=== PATIENT | female | born 1980 | race Caucasian/White ===

== ENCOUNTER → 2019-08-10 17:23 | Outpatient (BNVA) | payer MEDICAID, SELFPAY | PROVIDERS: Visit Provider Nurse Practitioner Family | DX: R10.9 Unspecified abdominal pain (principal); R10.31 Right lower quadrant pain; M54.5 Low back pain; F32.9 Major depressive disorder, single episode, unspecified; F41.9 Anxiety disorder, unspecified | CPT/HCPCS: 80053; 81001; 81003; 81025; 85025 ==

== ENCOUNTER → 2019-11-10 15:18 | Outpatient (BNVA) | payer SELFPAY | PROVIDERS: Visit Provider Nurse Practitioner Family | DX: M25.551 Pain in right hip (principal) | CPT/HCPCS: 73502; 80053; 84443; 85025 ==

== ENCOUNTER → 2019-12-13 14:13 | Outpatient (BNVA) | payer SELFPAY | PROVIDERS: Visit Provider Nurse Practitioner Family | DX: N39.0 Urinary tract infection, site not specified (principal); R30.0 Dysuria | CPT/HCPCS: 80053; 81003 ==

== ENCOUNTER 2020-02-19 16:08 | Emergency (ER) | payer SELFPAY ==
--- NOTE | 2020-02-19 16:20 | XRR_ITS ---
PROCEDURE INFORMATION: Exam: XR Left Ankle Exam date and time: 02/19/2020 4:21 PM Age: 39 years old Clinical indication: Pain; Ankle; Left; Additional info: Injury/pain TECHNIQUE: Imaging protocol: XR Left ankle. Views: 3 or more views. COMPARISON: No relevant prior studies available. FINDINGS: Bones/joints: The bone density is appropriate. No periosteal reaction. No osteomyelitis. No acute fracture or dislocation. No bony destructive changes. Soft tissues: There is soft tissue edema. No foreign body. No gas in the soft tissues. XR/XR ankle LT min 3V* [id number] IMPRESSION: No acute bony abnormality.
[2020-02-19 16:22] VITALS: BP 131/84; PULSE 110; RESP 18; TEMP 37.1; O2SAT 98; BMI 18.4
[2020-02-19 16:37] VITALS: RESP 18
--- NOTE | 2020-02-19 16:41 | ED_ITS ---
HPI - Extremity Injury (Lower) General: Chief Complaint: Extremity Injury, Lower Stated Complaint: L ANKLE INJURY Time Seen by Provider: 02/19/20 16:24 Source: patient Mode of arrival: wheelchair Limitations: no limitations History of Present Illness: HPI Narrative: Patient is a 39-year-old female who presents to ED today with a complaint of left ankle injury. Patient tells me she was at a park and accidentally stepped in a hole and inverted her foot. No other injuries or complaints at this time. Patient is not able to bear weight on the extremity. MD complaint: foot injury Onset (ago): hour(s) Injury: Left: ankle Type of Injury: inversion Place: street/outdoors Severity: moderate Relieving factors: immobilization Exacerbating factors: weight bearing, movement and palpation Context: other (twisted) Associated symptoms: Reports inability to bear weight Other symptoms: none Review of Systems Musc: Reports: joint pain (L ankle) and joint swelling (L ankle) PFSH ED PFSH: Social History Smoking and tobacco status: never smoked Second hand smoke exposure: No Alcohol intake: never Lives independently: Yes Household members: children Marital status: Current occupational status: employed Current occupation: [employer] History of recent travel: No Current gender identity: Female Physical Exam Const: COMMON NORMALS: no acute distress, patient oriented x3, no limitations and alert Extremity: GENERAL: Yes normal exam except as noted OTHER: TTP and significant swelling to L lateral malleolus with developing ecchymosis; NV intact Neuro: COMMON NORMALS: patient oriented x3 and no sensory deficits noted SENSORIUM/ORIENTATION: Yes alert GAIT: Yes Unable to assess gait Skin: COMMON NORMALS: no rashes or lesions noted GENERAL SKIN EXAM: no rashes or lesions noted Course Vital Signs: Vital signs: Vital Signs Temperature 98.7 F 02/19/20 16:22 Pulse Rate 110 H 02/19/20 16:22 Respiratory Rate 18 02/19/20 16:37 Blood Pressure 131/84 02/19/20 16:22 Pulse Oximetry 98 02/19/20 16:22 MDM - Extremity Injury (Lower) Imaging Data^: XR L ankle: My impression: soft tissue swelling about lateral malleolus; no fracture, dislocation, joint widening appreciated Discharge Plan Discharge Patient Disposition: Home Clinical Impression: Inversion sprain of left ankle Qualifiers: Encounter type: initial encounter Qualified Code(s): S93.402A - Sprain of unspecified ligament of left ankle, initial encounter Condition: Stable Prescriptions: No Action clonazepam 1 mg tablet 1 mg PO BID PRN (Reason: anxiety) Qty: 20 RF: 0 Discharge Orders: Discharge Order (Routine); Ordered 02/19/20 Ordered By: Nadine Ordoñez Patient Instructions: Ankle Sprain (ED), Ankle Stirrup Splint (ED), RICE Therapy (ED), Sprains - Ankle Activity Restrictions/Additional Instructions: As discussed ice and elevate the extremity as much as possible. Weightbearing as tolerated. Please follow-up with primary care in 1 week for continued or not improving pain. Coding Level of Care Code ED Music Engineer for Shama Fwnelly Exam Expanded Problem Focused
== END 2020-02-19 17:15 | disposition home or self-care (01) ==
PROVIDERS: Emergency Provider Physician Assistant
DX: S93.402A Sprain of unspecified ligament of left ankle, initial encounter (principal); X58.XXXA Exposure to other specified factors, initial encounter
CPT/HCPCS: 12345; 29515; 73610; 99281; 99283; E0114

== ENCOUNTER 2020-09-16 10:33 | Emergency (ER) | payer SELFPAY ==
[2020-09-16 10:56] VITALS: BP 120/66; PULSE 79; RESP 18; TEMP 36.6; O2SAT 99; BMI 18.6
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
[2020-09-16 12:11] LABS: Basophils # 0.1 10^3/uL (0.0-0.1); Basophils % 0.5 %; Eosinophils # 0.2 10^3/uL (0.0-0.8); Eosinophils % 1.9 %; Hematocrit 40.5 % (37.0-47.0); Hemoglobin 12.9 g/dL (11.5-15.3); Lymphocytes # 2.3 10^3/uL (0.8-4.8); Lymphocytes % 22.3 %; Mean Corpuscular HGB Conc 31.9 g/dL (30.0-36.0); Mean Corpuscular Hemoglobin 29.3 pg (28.0-34.0); Mean Corpuscular Volume 91.8 fL (81-99); Mean Platelet Volume 11.5 fL (7.4-10.4); Monocytes # 0.4 10^3/uL (0.2-0.9); Monocytes % 3.5 %; Neutrophils # 7.44 10^3/uL (1.8-7.7); Neutrophils % 71.6 %; Nucleated Red Blood Cells % 0 %; Platelet Count 230 10^3/cmm (130-400); Red Blood Count 4.41 10^6/uL (4.1-5.3); Red Cell Distribution Width 13.2 % (12.1-15.1); White Blood Count 10.4 10^3/uL (4.0-10.0)
[2020-09-16 12:15] LABS: Glucose Urine UA Norm (Normal); Protein Urine 1+ (Negative); Urine Appearance SL Hazy (CLEAR); Urine Color Yellow (Yellow); pH Urine 7 (5-7)
[2020-09-16 12:16] LABS: Add Urine Microscopic? YES; Bilirubin Urine 1+ (Negative); Blood Urine 2+ (Negative); Ketones Urine Negative (Negative); Leukocyte Esterase Urine Trace (Negative); Nitrate Urine Positive (Negative); Urobilinogen Urine 4 mg/dL (Negative)
[2020-09-16 12:18] LABS: Squamous Epithelial Cell Urine RARE /hpf (0-5); WBC Urine 25-40 /hpf (0-5)
[2020-09-16 12:18] LABS: Blood Urea Nitrogen 8 mg/dL (6-20); Calcium 8.8 mg/dL (8.5-10.5); Carbon Dioxide 26 mmol/L (22-29); Chloride 104 mmol/L (98-107); Glomerular Filtration Rate 138.1 mL/min (90-130); Glucose 86 mg/dL (65-115); Osmolality Calculated 284 mOsm/kg (285-295); Sodium 138 mmol/L (136-145)
[2020-09-16 12:19] LABS: Add Urine Culture? Yes; Bacteria Urine 1+ /hpf; Mucus Urine 1+ /hpf
[2020-09-16 12:26] LABS: Anion Gap 12.3 (5-19); Potassium 4.3 mmol/L (3.5-5.1)
[2020-09-16] MEDS: cefTRIAXone 1,000 MG in lidocaine 1% 2.1 ML 1 MG IM (12:33)
[2020-09-16 13:06] VITALS: BP 119/64; PULSE 62; RESP 18; O2SAT 99
--- NOTE | 2020-09-19 10:46 | PC.NURSE ---
Attempted to call pt but unable to reach her on any number listed.
== END 2020-09-16 13:08 | disposition home or self-care (01) ==
PROVIDERS: Nurse Practitioner Family; Emergency Provider Family Medicine
DX: N39.0 Urinary tract infection, site not specified (principal); F17.290 Nicotine dependence, other tobacco product, uncomplicated
CPT/HCPCS: 80048; 81001; 85025; 87086; 96372; 99283; J0696

== ENCOUNTER 2020-09-17 19:09 | Emergency (ER) | payer MEDICAID, SELFPAY ==
[2020-09-17 19:24] VITALS: BP 126/81; PULSE 80; RESP 15; TEMP 36.7; O2SAT 100; BMI 18.6
[2020-09-17 22:15] VITALS: BP 135/101; PULSE 133; RESP 20; O2SAT 100
--- NOTE | 2020-09-17 22:16 | W.ED.NAVMDI ---
HPI - Nausea/Vomiting/Diarrhea General: Chief complaint: Nausea/Vomiting/Diarrhea Stated complaint: n/v, here yesterday Time Seen by Provider: 09/17/20 22:14 History of Present Illness: HPI Narrative: Patient is a nausea vomiting and diarrhea. Patient was seen in the ED yesterday today and diagnosed with a UTI. She was unable to get her prescription filled today and has not been taking her prescribed antibiotic to treat UTI. Today she started developing some nausea and vomiting and diarrhea around 3 PM. Patient also complaining of having some right flank pain. Right flank pain rated an 8 out of 10. Associated nausea: Yes Associated symtoms: Reports dysuria and nausea; Denies change in vision, chest pain, fatigue, headache(s) or palpitations Review of Systems Const: Denies: fever(s), chills or fatigue Eyes: Denies: change in vision or eye discomfort ENMT: Denies: throat pain, odynophagia, nasal discharge or nasal congestion Card: Denies: chest pain, palpitations, edema, swelling of feet/ankles, dyspnea on exertion or orthopnea Resp: Denies: dyspnea, productive cough or non-productive cough GI: Reports: nausea, vomiting and diarrhea; Denies: abdominal pain, constipation or hematochezia : Reports: flank pain (Right flank) and dysuria; Denies: hematuria Musc: Denies: neck pain, back pain or extremity swelling Skin/Breast: Denies: rash or new lesions Neuro: Denies: headache(s), numbness in extremities or weakness in extremities PFS ED PFSH: Surgical History History of knee surgery History of tubal ligation Social History Smoking and tobacco status: current every day smoker e-cigarettes E-Cigarette Details: vaporizer device and with nicotine E-cig/vape details: 6 mg/day Quit status (tobacco): has tried quititng Number of times tried to quit tobacco: 1 Second hand smoke exposure: No Alcohol intake: never Lives independently: Yes Household members: children Marital status: Current occupational status: employed Current occupation: [employer] History of recent travel: No Current gender identity: Female Female Reproductive History: Date of last menstrual period: 09/11/20 Physical Exam Const: COMMON NORMALS: no acute distress, patient oriented x3, healthy appearing and alert GENERAL APPEARANCE: cooperative and comfortable HENMT: COMMON NORMALS: normocephalic HEAD & SCALP: normocephalic MOUTH: Normal oral and palatal mucosa present THROAT: posterior oropharynx normal and uvula midline Eye: COMMON NORMALS: Equal, round and reactive pupils present PUPIL: Yes Equal, round and reactive pupils present Neck/C-Spine: COMMON NORMALS: supple GENERAL: Yes normal visual inspection Resp: COMMON NORMALS: normal respiratory effort, No retractions, No use of accessory muscles and clear to auscultation bilaterally AUSCULTATION: clear to auscultation bilaterally Cardio: COMMON NORMALS: regular rate, regular rhythm, S1 normal heart sound present, S2 normal heart sound present, No gallops present (Cardio), No clicks present (Cardio), No murmurs present (Cardio) and Peripheral pulses 2+ throughout RATE: regular rate RHYTHM: regular rhythm HEART SOUNDS: S1 normal heart sound present and S2 normal heart sound present PERIPHERAL PULSES: Peripheral pulses 2+ throughout GI: COMMON NORMALS: Normal to inspection, nondistended, normoactive bowel sounds present, Soft to palpation, non-tender and no masses PALPATION: Yes Soft to palpation : BLADDER/KIDNEY EXAM: Yes Bladder palpation abnormal Bladder abnormal details: tender Back/Pelvis: GENERAL BACK: Yes CVA tenderness CVA tenderness: right Extremity: COMMON NORMALS: normal to inspection Neuro: COMMON NORMALS: patient oriented x3 and moves all extremities SENSORIUM/ORIENTATION: Yes alert Skin: GENERAL SKIN EXAM: dry skin Course Vital Signs: Vital signs: Vital Signs Temperature 98.0 F 09/18/20 01:22 Pulse Rate 78 09/18/20 01:22 Respiratory Rate 15 09/18/20 01:22 Blood Pressure 107/53 09/18/20 01:22 Pulse Oximetry 99 09/18/20 01:22 MDM - Nausea/Vomiting/Diarrhea MDM Narrative: Medical decision making narrative: Patient is a 40-year-old female comes to the ED with nausea/vomiting, right flank pain. Patient was seen here in the ED September 16 and was diagnosed with a UTI and discharged home with a prescription for an antibiotic. Patient says she has not filled the antibiotic prescription yet. She states today she started developing some worsening symptoms. Exam shows some right CVA tenderness and some tenderness upon palpation of bladder. White blood cell count 12.9 and the rest of CBC and CMP were unremarkable. UA suggestive of UTI. Patient was given IV fluids, Zofran, Toradol and Rocephin. Patient's symptoms improved and she no longer felt nauseous. Patient diagnosed with UTI and discharged home with a prescription of Zofran. She was told to take her previously prescribed antibiotic to treat her UTI and to drink plenty of fluids and stay hydrated. Return to ED precautions given. Follow-up with PCP in 7 to 10 days for reevaluation. Patient understood and agreed with plan. Lab Data: Attestation: I reviewed the patient's lab results. Labs: Lab Results 09/17/20 09/17/20 09/17/20 Range/Units 22:35 22:35 22:35 WBC 12.9 H (4.0-10.0) 10^3/ uL RBC 4.85 (4.1-5.3) 10^6/u L Hgb 14.1 (11.5-15.3) g/dL Hct 45.1 (37.0-47.0) % MCV 93.0 (81-99) fL MCH 29.1 (28.0-34.0) pg MCHC 31.3 (30.0-36.0) g/dL RDW 13.1 (12.1-15.1) % Plt Count 255 (130-400) 10^3/c mm MPV 10.5 H (7.4-10.4) fL Neut % (Auto) 85.2 % Lymph % (Auto) 9.3 % Christian % (Auto) 2.8 % Eos % (Auto) 2.1 % Baso % (Auto) 0.4 % Neut # (Auto) 11.01 H (1.8-7.7) 10^3/u L Lymph # (Auto) 1.2 (0.8-4.8) 10^3/u L Christian # (Auto) 0.4 (0.2-0.9) 10^3/u L Eos # (Auto) 0.3 (0.0-0.8) 10^3/u L Baso # (Auto) 0.1 (0.0-0.1) 10^3/u L Nucleated RBC % (a uto) 0 % Nucleated RBCs # 0.0 /100WBC Sodium 142 (136-145) mmol/L Potassium 3.8 (3.5-5.1) mmol/L Chloride 108 H (98-107) mmol/L Carbon Dioxide 24 (22-29) mmol/L Anion Gap 13.8 (5-19) BUN 12 (6-20) mg/dL Creatinine 0.5 (0.5-0.9) mg/dL GFR Calculation 138.1 H (90-130) mL/min Glucose 108 (65-115) mg/dL Calculated Osmolal ity 294 (285-295) mOsm/k g Calcium 8.5 (8.5-10.5) mg/dL Total Bilirubin 1.3 H (0.15-1.2) mg/dL AST 17 (0-32) U/L ALT 21 (0-33) U/L Alkaline Phosphata se 50 (35-105) IU/L Total Protein 7.2 (6.6-8.7) g/dL Albumin 4.5 (3.5-5.2) g/dL Globulin 2.7 (1.3-4.6) g/dL HCG, Qual Negative (Negative) Urine Color (Yellow) Urine Appearance (CLEAR) Urine pH (5-7) Ur Specific Gravit y (1.005-1.030) Urine Protein (Negative) Urine Glucose (UA) (Normal) Urine Ketones (Negative) Urine Blood (Negative) Urine Nitrate (Negative) Urine Bilirubin (Negative) Urine Urobilinogen (Negative) mg/dL Ur Leukocyte Nancie ase (Negative) Urine RBC (0-2) /hpf Urine WBC (0-5) /hpf Ur Squamous Epith Cells (0-5) /hpf Amorphous Sediment Urine Bacteria (NONE) /hpf Urine Mucus /hpf 09/17/20 Range/Units 22:35 WBC (4.0-10.0) 10^3/ uL RBC (4.1-5.3) 10^6/u L Hgb (11.5-15.3) g/dL Hct (37.0-47.0) % MCV (81-99) fL MCH (28.0-34.0) pg MCHC (30.0-36.0) g/dL RDW (12.1-15.1) % Plt Count (130-400) 10^3/c mm MPV (7.4-10.4) fL Neut % (Auto) % Lymph % (Auto) % Christian % (Auto) % Eos % (Auto) % Baso % (Auto) % Neut # (Auto) (1.8-7.7) 10^3/u L Lymph # (Auto) (0.8-4.8) 10^3/u L Christian # (Auto) (0.2-0.9) 10^3/u L Eos # (Auto) (0.0-0.8) 10^3/u L Baso # (Auto) (0.0-0.1) 10^3/u L Nucleated RBC % (a uto) % Nucleated RBCs # /100WBC Sodium (136-145) mmol/L Potassium (3.5-5.1) mmol/L Chloride (98-107) mmol/L Carbon Dioxide (22-29) mmol/L Anion Gap (5-19) BUN (6-20) mg/dL Creatinine (0.5-0.9) mg/dL GFR Calculation (90-130) mL/min Glucose (65-115) mg/dL Calculated Osmolal ity (285-295) mOsm/k g Calcium (8.5-10.5) mg/dL Total Bilirubin (0.15-1.2) mg/dL AST (0-32) U/L ALT (0-33) U/L Alkaline Phosphata se (35-105) IU/L Total Protein (6.6-8.7) g/dL Albumin (3.5-5.2) g/dL Globulin (1.3-4.6) g/dL HCG, Qual (Negative) Urine Color Yellow (Yellow) Urine Appearance Clear (CLEAR) Urine pH 5 (5-7) Ur Specific Gravit y 1.015 (1.005-1.030) Urine Protein Trace (Negative) Urine Glucose (UA) Norm (Normal) Urine Ketones Negative (Negative) Urine Blood 2+ H (Negative) Urine Nitrate Negative (Negative) Urine Bilirubin 1+ H (Negative) Urine Urobilinogen 1 H (Negative) mg/dL Ur Leukocyte Nancie ase Negative (Negative) Urine RBC 15-25 H (0-2) /hpf Urine WBC 0-4 H (0-5) /hpf Ur Squamous Epith Cells 25-40 H (0-5) /hpf Amorphous Sediment Not Reportable Urine Bacteria Trace (NONE) /hpf Urine Mucus 3+ /hpf Discharge Plan Discharge Patient Disposition: Home Clinical Impression: UTI (urinary tract infection) Qualifiers: Urinary tract infection type: acute cystitis Hematuria presence: with hematuria Qualified Code(s): N30.01 - Acute cystitis with hematuria Nausea & vomiting Qualifiers: Vomiting type: unspecified Vomiting Intractability: non-intractable Qualified Code(s): R11.2 - Nausea with vomiting, unspecified Condition: Stable Prescriptions: New ondansetron 4 mg tablet,disintegrating 4 mg PO Q8H PRN (Reason: Nausea) Qty: 15 RF: 0 No Action sulfamethoxazole-trimethoprim [Bactrim DS] 800-160 mg tablet 1 tab PO BID Qty: 20 RF: 0 mupirocin 2 % ointment 1 applic topical TID Qty: 22 RF: 0 melatonin 3 mg Tablet 3 mg PO BEDTIME RF: 0 Cipro 500 mg tablet 500 mg PO BID Qty: 14 RF: 0 Discharge Orders: Discharge ED (Routine); Ordered 09/18/20 Ordered By: Jamal Arango Discharge Diet: Regular Discharge Activity: Resume usual activity Patient Instructions: Urinary Tract Infection in Women (ED) Activity Restrictions/Additional Instructions: Follow-up with medical provider as directed in 7 to 10 days for reevaluation. Get your antibiotic prescription filled tomorrow morning and also take the prescribed Zofran as needed for nausea. Drink plenty fluids and stay hydrated. Take [id number] Tylenol or Motrin for pain. Return to the ER or your medical provider if condition worsens. Please read and understand discharge instructions. If any questions, please ask. Coding Level of Care Code ED [place] [employer] for Shama Fwd Exam Comprehensive
[2020-09-17] MEDS: ondansetron 2 mg/ML SDV 2 mL 4 MG IVP (22:41)
[2020-09-17 22:42] LABS: Basophils # 0.1 10^3/uL (0.0-0.1); Basophils % 0.4 %; Eosinophils # 0.3 10^3/uL (0.0-0.8); Eosinophils % 2.1 %; Hematocrit 45.1 % (37.0-47.0); Hemoglobin 14.1 g/dL (11.5-15.3); Lymphocytes # 1.2 10^3/uL (0.8-4.8); Lymphocytes % 9.3 %; Mean Corpuscular HGB Conc 31.3 g/dL (30.0-36.0); Mean Corpuscular Hemoglobin 29.1 pg (28.0-34.0); Mean Platelet Volume 10.5 fL (7.4-10.4); Monocytes # 0.4 10^3/uL (0.2-0.9); Monocytes % 2.8 %; Neutrophils # 11.01 10^3/uL (1.8-7.7); Neutrophils % 85.2 %; Nucleated Red Blood Cells % 0 %; Platelet Count 255 10^3/cmm (130-400); Red Blood Count 4.85 10^6/uL (4.1-5.3); Red Cell Distribution Width 13.1 % (12.1-15.1); White Blood Count 12.9 10^3/uL (4.0-10.0)
[2020-09-17] MEDS: sodium chloride 0.9% 1,000 ML 999 ML IV (22:42)
[2020-09-17 22:46] VITALS: BP 109/63; PULSE 69; RESP 16; O2SAT 100
[2020-09-17 23:01] LABS: Alanine Aminotransferase 21 U/L (0-33); Albumin Level 4.5 g/dL (3.5-5.2); Alkaline Phosphatase 50 IU/L (35-105); Anion Gap 13.8 (5-19); Aspartate Amino Transferase 17 U/L (0-32); Blood Urea Nitrogen 12 mg/dL (6-20); Calcium 8.5 mg/dL (8.5-10.5); Carbon Dioxide 24 mmol/L (22-29); Chloride 108 mmol/L (98-107); Globulin 2.7 g/dL (1.3-4.6); Glomerular Filtration Rate 138.1 mL/min (90-130); Glucose 108 mg/dL (65-115); HCG, Serum Qual Negative (Negative); Osmolality Calculated 294 mOsm/kg (285-295); Potassium 3.8 mmol/L (3.5-5.1); Sodium 142 mmol/L (136-145); Total Bilirubin 1.3 mg/dL (0.15-1.2); Total Protein 7.2 g/dL (6.6-8.7)
[2020-09-17 23:27] LABS: Bilirubin Urine 1+ (Negative); Blood Urine 2+ (Negative); Glucose Urine UA Norm (Normal); Ketones Urine Negative (Negative); Leukocyte Esterase Urine Negative (Negative); Nitrate Urine Negative (Negative); Protein Urine Trace (Negative); Specific Gravity, Urine 1.015 (1.005-1.030); Urine Appearance Clear (CLEAR); Urine Color Yellow (Yellow); Urobilinogen Urine 1 mg/dL (Negative); pH Urine 5 (5-7)
[2020-09-17 23:28] LABS: Add Urine Culture? No; Bacteria Urine TRACE /hpf; Mucus Urine 3+ /hpf; RBC Urine 15-25 /hpf (0-2); Squamous Epithelial Cell Urine 25-40 /hpf (0-5); WBC Urine 0-4 /hpf (0-5)
[2020-09-17] MEDS: cefTRIAXone 1,000 MG in sodium chloride 0.9% (plus) 50 ML 100 MG IV (23:28)
[2020-09-17 23:30] VITALS: BP 116/69; PULSE 77; RESP 16; O2SAT 100
[2020-09-17] MEDS: ketorolac 30 mg/mL INJ IVP (23:53)
[2020-09-18 01:22] VITALS: BP 107/53; PULSE 78; RESP 15; TEMP 36.7; O2SAT 99
== END 2020-09-18 01:22 | disposition home or self-care (01) ==
PROVIDERS: Emergency Provider Physician Assistant
DX: R11.2 Nausea with vomiting, unspecified (principal); N30.01 Acute cystitis with hematuria; F17.290 Nicotine dependence, other tobacco product, uncomplicated
CPT/HCPCS: 80053; 81001; 84703; 85025; 96365; 96375; 99283; J0696; J1885; J2405; J7030

== ENCOUNTER → 2020-09-20 11:51 | Outpatient (BNVA) | payer MEDICAID, SELFPAY | PROVIDERS: Visit Provider Nurse Practitioner Family | DX: Z12.4 Encounter for screening for malignant neoplasm of cervix (principal); Z11.3 Encounter for screening for infections with a predominantly sexual mode of transmission; N64.4 Mastodynia | CPT/HCPCS: 87070; 87205; 87491; 87591; 87661; 88175 ==

== ENCOUNTER 2020-10-30 13:27 | Outpatient (CLI) | payer SELFPAY ==
--- NOTE | 2020-10-30 13:30 | MM_ITS ---
WS: [id number] DIAGNOSTIC BILATERAL DIGITAL MAMMOGRAM WITH CAD HISTORY: N64.4 - Mastodynia COMPARISON: None available. TECHNIQUE: Bilateral craniocaudad, mediolateral oblique, and mediolateral views are submitted. Comput er aided detection utilized. Breast composition: The breasts are extremely dense, which lowers the sensitivity of mammography. Sym metric fibroglandular soft tissue densities within each breast. No distortion or calcification. MM/[id number] IMPRESSION: BI-RADS: 1-Negative FOLLOW UP: 1 Year Follow-up Patient was not experiencing any breast tenderness or palpable nodules on today 's examination. Therefore, no ultrasound was performed.
== END 2020-10-30 13:28 | disposition home or self-care (01) ==
LOC: RADSHAW 13:30
PROVIDERS: PCP Nurse Practitioner Family; Visit Provider Nurse Practitioner Family
DX: N64.4 Mastodynia (principal)
CPT/HCPCS: 77066

== ENCOUNTER → 2021-03-08 16:20 | Outpatient (BNVA) | payer SELFPAY | PROVIDERS: PCP Nurse Practitioner Family; Visit Provider Nurse Practitioner Family | DX: N30.00 Acute cystitis without hematuria (principal) | CPT/HCPCS: 81003 ==

== ENCOUNTER 2021-06-08 18:51 | Emergency (ER) | payer BC, MEDICAID, SELFPAY ==
[2021-06-08 19:35] VITALS: BP 118/53; PULSE 77; RESP 18; TEMP 36.8; O2SAT 98; BMI 19.3
--- NOTE | 2021-06-08 19:46 | ED_ITS ---
HPI - Headache General: Chief Complaint: Headache Stated Complaint: Migrane Headache Time Seen by Provider: 06/08/21 19:40 History of Present Illness: HPI Narrative: Complains about headache started today after work. Pain radiates up her neck and left side comes and behind her eye. It is more spasmodic. Feels little nauseous. 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[employer].) Relieving factors: dark room Context: occurred with exertion/activity Associated symptoms: Reports no associated symptoms; Deny chest pain, fever(s), nausea, rash or vomiting Review of Systems Const: Denies: fever(s), chills or body aches Eyes: Denies: change in vision or blurry vision ENMT: Denies: throat pain or nasal congestion Card: Denies: chest pain or dyspnea on exertion Resp: Denies: dyspnea, productive cough or non-productive cough GI: Denies: abdominal pain, nausea or vomiting Musc: Denies: extremity pain Skin/Breast: Denies: rash Neuro: Reports: headache(s) Psych: Denies: anxiety or depression Nazario/Lymph: Denies: easy bruising PFSH ED PFSH: Surgical History History of knee surgery History of tubal ligation Social History Smoking and tobacco status: current every day smoker e-cigarettes E-Cigarette Details: vaporizer device and with nicotine E-cig/vape details: 6 mg/day Quit status (tobacco): has tried quititng Number of times tried to quit tobacco: 1 Second hand smoke exposure: No Alcohol intake: never Lives independently: Yes Household members: children Marital status: Current occupational status: employed Current occupation: [employer] History of recent travel: No Current gender identity: Female Female Reproductive History: Date of last menstrual period: 09/11/20 Physical Exam Const: COMMON NORMALS: no acute distress, average body habitus and patient oriented x3 HENMT: COMMON NORMALS: normocephalic HEAD & SCALP: normal to inspection and normocephalic FACE & SINUS: normal facial exam Eye: COMMON NORMALS: Equal, round and reactive pupils present and conjunctivae normal GENERAL EYE: appearance normal, both eyes and all related structures CONJUNCTIVA: Yes conjunctivae normal PUPIL: Yes Equal, round and reactive pupils present Neck/C-Spine: COMMON NORMALS: no JVD CERVICAL SPINE: Yes cervical ROM normal, No pain with cervical ROM, No Cervical spine tenderness, Yes Paracervical muscle tenderness left and Yes Trapezius muscle tenderness left Chest: COMMONS NORMALS: normal inspection of the chest Resp: COMMON NORMALS: normal respiratory effort and clear to auscultation bilaterally AUSCULTATION: clear to auscultation bilaterally Cardio: COMMON NORMALS: no JVD, regular rate and regular rhythm RATE: regular rate RHYTHM: regular rhythm GI: COMMON NORMALS: Normal to inspection, nondistended, normoactive bowel sounds present Extremity: COMMON NORMALS: normal to inspection and full ROM Neuro: COMMON NORMALS: patient oriented x3 and moves all extremities Course Vital Signs: Vital signs: Vital Signs Temperature 98.3 F 06/08/21 19:35 Pulse Rate 77 06/08/21 19:35 Respiratory Rate 19 H 06/08/21 20:54 Blood Pressure 118/53 06/08/21 19:35 Pulse Oximetry 98 06/08/21 19:35 MDM - Headache MDM Narrative: Medical decision making narrative: Patient responded well to medication for headache. Prescription was provided. Patient requests note for being off work. Patient has follow-up with primary care provider return here for worsening symptoms. Discharge Plan Discharge Patient Disposition: Home Clinical Impression: Acute tension headache Qualifiers: Intractability: intractable Qualified Code(s): G44.201 - Tension-type headache, unspecified, intractable Condition: Stable Prescriptions: New Fioricet 50-300-40 mg capsule 1 cap PO Q6H PRN (Reason: pain) Qty: 14 RF: 0 No Action cefdinir 300 mg capsule 300 mg PO BID Qty: 14 RF: 0 melatonin 3 mg Tablet 3 mg PO BEDTIME RF: 0 Discharge Orders: Discharge ED (Routine); Ordered 06/08/21 Ordered By: Adrien Ling Referrals: Flori Robin FNP [Primary Care Provider] - Discharge Diet: Usual diet Discharge Activity: Increase activity as tolerated Patient Instructions: Tension Headache (ED) Activity Restrictions/Additional Instructions: Follow-up with medical provider as directed. Take medications as prescribed. Return to the ER or your medical provider if condition worsens. Please read and understand discharge instructions. If any questions ask please. Stand Alone Forms: Work/School Release Coding Level of Care Code ED [employer] App[employer] for [employer] Fwd Exam Comprehensive
[2021-06-08] MEDS: orphenadrine 30 mg/mL Inj 2 mL 60 MG IM (19:57)
[2021-06-08] MEDS: ketorolac 60 mg/2 mL INJ IM (19:57)
[2021-06-08] MEDS: promethazine 25 mg Tablet 12.5 MG PO (19:58)
[2021-06-08 20:54] VITALS: RESP 19
== END 2021-06-08 20:55 | disposition home or self-care (01) ==
PROVIDERS: Emergency Provider Nurse Practitioner Family; PCP Nurse Practitioner Family
DX: G44.201 Tension-type headache, unspecified, intractable (principal); F17.290 Nicotine dependence, other tobacco product, uncomplicated
CPT/HCPCS: 96372; 99283; J1885; J2360; Q0169

== ENCOUNTER → 2021-07-05 12:16 | Outpatient (BNVA) | payer BC, MEDICAID, SELFPAY | PROVIDERS: PCP Nurse Practitioner Family; Visit Provider Nurse Practitioner Family | DX: F41.0 Panic disorder [episodic paroxysmal anxiety] (principal); R59.1 Generalized enlarged lymph nodes; G43.909 Migraine, unspecified, not intractable, without status migrainosus; F41.1 Generalized anxiety disorder; R00.2 Palpitations; R79.89 Other specified abnormal findings of blood chemistry | CPT/HCPCS: 80053; 80061; 84443; 85025; 86705; 86706; 86709; 86803; 87340 ==

== ENCOUNTER → 2021-10-23 10:45 | Outpatient (BNVA) | payer BC, MEDICAID, SELFPAY | PROVIDERS: PCP Nurse Practitioner Family; Visit Provider Nurse Practitioner Family | DX: F41.9 Anxiety disorder, unspecified (principal); F32.9 Major depressive disorder, single episode, unspecified; F41.0 Panic disorder [episodic paroxysmal anxiety]; R79.89 Other specified abnormal findings of blood chemistry; R00.2 Palpitations; F41.1 Generalized anxiety disorder | CPT/HCPCS: 80053 ==